=== PATIENT | female | born 1950 | race Caucasian/White ===

== ENCOUNTER 2017-12-18 15:50 | Emergency (ER) | payer MEDICARE, BC ==
[2017-12-18] MEDS ORDERED: ONDANSETRON 4 MG TAB.RAPDIS PO ONE (16:45)
[2017-12-18] MEDS ORDERED: RINGERS SOLUTION,LACTATED 1,000 ML IV ONE (16:45)
--- NOTE | 2017-12-18 16:50 | ER Document Report ---
ED Medical Screen (RME) - General Chief Complaint: Abdominal Pain Stated Complaint: ABDOMINAL PAIN Time Seen by Provider: 12/18/17 16:45 Mode of Arrival: Ambulatory Information source: Patient Notes: 67-year-old female with a history of diverticulitis presents to the emergency room with left lower quadrant tenderness since this morning consistent with previous episodes of diverticulitis. Patient does report nausea without vomiting. She denies fever. She has had some diarrhea but has not had any blood in her stool. TRAVEL OUTSIDE OF THE [place] IN LAST 30 DAYS: No - Related Data Allergies/Adverse Reactions: Sulfa (Sulfonamide Antibiotics) Allergy (Mild, Verified 12/18/17 15:54) Past Medical History - Social History Chew tobacco use (# tins/day): No Frequency of alcohol use: daily Drug Abuse: None - Past Medical History Cardiac Medical History: Reports: Hx Hypercholesterolemia, Hx Hypertension Renal/ Medical History: Denies: Hx Peritoneal Dialysis Past Surgical History: Reports: Hx Hysterectomy Physical Exam - Vital signs Vitals: Temp Pulse Resp BP Pulse Ox 98.8 F 93 20 130/91 H 97 12/18/17 16:21 12/18/17 16:21 12/18/17 16:21 12/18/17 16:21 12/18/17 16:21 Course - Vital Signs Vital signs: Temp Pulse Resp BP Pulse Ox 98.8 F 93 20 130/91 H 97 12/18/17 16:21 12/18/17 16:21 12/18/17 16:21 12/18/17 16:21 12/18/17 16:21
[2017-12-18 19:38] LABS: ABSOLUTE EOSINOPHILS # (AUTO) 0.1 10^3/uL (0.0-0.6); ABSOLUTE LYMPHOCYTES (AUTO) 1.3 10^3/uL (0.5-4.7); ABSOLUTE MONOCYTES (AUTO) 0.7 10^3/uL (0.1-1.4); ABSOLUTE NEUT (AUTO) 3.5 10^3/uL (1.7-8.2); BASOPHILS % (AUTO) 0.4 % (0-2); EOSINOPHILS % (AUTO) 2.2 % (0-6); HEMATOCRIT 42.6 % (36.0-47.0); HEMOGLOBIN 14.5 g/dL (12.0-15.5); LYMPHOCYTES % (AUTO) 22.3 % (13-45); MEAN CORPUSCULAR HEMOGLOBIN 33.5 pg (27.0-33.4); MEAN CORPUSCULAR VOLUME 98 fl (80-97); MONOCYTES % (AUTO) 13.2 % (3-13); PLATELET COUNT 236 10^3/uL (150-450); RED BLOOD COUNT 4.32 10^6/uL (3.72-5.28); SEGMENTED NEUTROPHILS % (AUTO) 61.9 % (42-78); TOTAL CELLS COUNTED % (AUTO) 100 %; WHITE BLOOD COUNT 5.6 10^3/uL (4.0-10.5)
[2017-12-18 19:46] LABS: PROTHROMBIN TIME 13.9 SEC (11.4-15.4)
[2017-12-18 19:55] LABS: ALANINE AMINOTRANSFERASE 56 U/L (9-52); ALBUMIN 5.1 g/dL (3.5-5.0); ALKALINE PHOSPHATASE 43 U/L (38-126); ANION GAP 17 (5-19); ASPARTATE AMINO TRANSFERASE 54 U/L (14-36); BILIRUBIN,DIRECT 0.2 mg/dL (0.0-0.4); BILIRUBIN,TOTAL 0.4 mg/dL (0.2-1.3); BLOOD UREA NITROGEN 17 mg/dL (7-20); CALCIUM 9.9 mg/dL (8.4-10.2); CARBON DIOXIDE 24 mmol/L (22-30); CHLORIDE 98 mmol/L (98-107); GLUCOSE 101 mg/dL (75-110); POTASSIUM 3.8 mmol/L (3.6-5.0); SODIUM 138.5 mmol/L (137-145); TOTAL PROTEIN 7.4 g/dL (6.3-8.2)
[2017-12-18] MEDS ORDERED: ONDANSETRON HCL INJ/PF 4 MG/2 ML SDV IV ONE (20:19)
[2017-12-18] MEDS ORDERED: KETOROLAC TROMETHAMINE INJ/PF 30 MG/1 ML SDV IV ONE (20:19)
--- NOTE | 2017-12-18 20:49 | ER Document Report ---
ED General - General Chief Complaint: Abdominal Pain Stated Complaint: ABDOMINAL PAIN Time Seen by Provider: 12/18/17 16:45 Mode of Arrival: Ambulatory TRAVEL OUTSIDE OF THE [place] IN LAST 30 DAYS: No - Related Data Allergies/Adverse Reactions: Sulfa (Sulfonamide Antibiotics) Allergy (Mild, Verified 12/18/17 15:54) Past Medical History - General Information source: Patient - Social History Smoking Status: Former Smoker Chew tobacco use (# tins/day): No Frequency of alcohol use: daily Drug Abuse: None Family History: Reviewed & Not Pertinent Patient has suicidal ideation: No Patient has homicidal ideation: No - Past Medical History Cardiac Medical History: Reports: Hx Hypercholesterolemia, Hx Hypertension Renal/ Medical History: Denies: Hx Peritoneal Dialysis Past Surgical History: Reports: Hx Hysterectomy Physical Exam - Vital signs Vitals: Temp Pulse Resp BP Pulse Ox 98.8 F 93 20 130/91 H 97 12/18/17 16:21 12/18/17 16:21 12/18/17 16:21 12/18/17 16:21 12/18/17 16:21 Course - Re-evaluation Re-evalutation: 12/18/17 20:47 Patient presents with focal tenderness to the left lower quadrant without any rebound or guarding. Labs are unremarkable, vitals within normal limits, patient does not meet sepsis criteria. She does have a history of diverticulitis in the past and states this feels exactly the same. Given her age, CT scan of the abdomen pelvis will be obtained to exclude perforation or localized abscess. Also obtain a urinalysis as an alternative diagnostic consideration would be pyelonephritis with associated cystitis given her location of pain. I do not clinically suspect an acute appendicitis, mesenteric ischemia, biliary colic, or acute pancreatitis based on exam and history. Will review CT scan and then plan for appropriate disposition 12/18/17 22:19 CT scan does show multiple areas of colonic inflammation, possible ileus although patient is not having any ongoing vomiting. Patient is on chronic opiate therapy which could be contributing to the possible ileus and she has been encouraged to discontinue these medications in conjunction with her physician. She has tolerated oral intake at this time without any difficulty. I do not see a current indication for hospitalization. Will treat empirically with antibiotics for possible infectious colitis given several areas of regional small and large bowel inflammation, recommend outpatient follow-up and consideration of a GI referral. At this time will discharge with return precautions and follow-up recommendations. Verbal discharge instructions given a the bedside and opportunity for questions given. Medication warnings reviewed. Patient is in agreement with this plan and has verbalized understanding of return precautions and the need for primary care follow-up in the next 24-72 hours. - Vital Signs Vital signs: Temp Pulse Resp BP Pulse Ox 98.8 F 86 18 134/84 H 99 12/18/17 16:21 12/18/17 23:18 12/18/17 23:18 12/18/17 23:18 12/18/17 23:18 - Laboratory Result Diagrams: 12/18/17 19:25 12/18/17 19:25 Laboratory results interpreted by me: 12/18/17 12/18/17 19:25 19:25 MCV 98 H MCH 33.5 H Monocytes % 13.2 H AST 54 H ALT 56 H Albumin 5.1 H - Diagnostic Test Radiology reviewed: Reports reviewed Discharge - Discharge Clinical Impression: Colitis Nausea and vomiting Qualifiers: Vomiting type: unspecified Vomiting Intractability: non-intractable Qualified Code(s): R11.2 - Nausea with vomiting, unspecified Diarrhea Qualifiers: Diarrhea type: unspecified type Qualified Code(s): R19.7 - Diarrhea, unspecified Condition: Good Disposition: HOME, SELF-CARE Additional Instructions: You were seen today for focal pain in your left lower quadrant. Your labs, exam , and imaging suggest a diagnosis of colonic inflammation in your CT scan does show several areas of your bowel that are inflamed. You are being started on antibiotics to treat this infection and inflammation. Please take all of them as directed and complete them even if your symptoms resolve. Please follow-up with your primary care physician within the next 48 hours. Return to the emergency department immediately if you develop worsening pain, persistent vomiting, began having bloody stools, develop a fever of greater than 101F, or have any other symptoms that are concerning to you. Please also discuss with your primary care doctor considering a GI referral if your symptoms are not improving within the next several days. Prescriptions: Cephalexin Monohydrate [Keflex 500 mg Capsule] 500 mg PO Q6H 10 Days #40 capsule Metronidazole [Flagyl 500 mg Tablet] 500 mg PO Q6H #40 tablet
--- NOTE | 2017-12-18 21:54 | RADIOLOGY REPORT (SQ) ---
EXAM DESCRIPTION: CT ABD/PELVIS WITH IV ONLY COMPLETED DATE/TIME: 12/18/2017 9:20 pm REASON FOR STUDY: eval left lower abdominal pain COMPARISON: None. TECHNIQUE: CT scan of the abdomen and pelvis performed using helical scanning technique with dynamic intravenous contrast injection. No oral contrast. Images reviewed with lung, soft tissue, and bone windows. Reconstructed coronal and sagittal MPR images reviewed. Delayed images for evaluation of the urinary system also acquired. All images stored on PACS. All CT scanners at this facility use dose modulation, iterative reconstruction, and/or weight based d osing when appropriate to reduce radiation dose to as low as reasonably achievable (ALARA). [facility]: Dose Right [facility]: CareDose [facility]: Dose Right [facility]: Teradose 4D [facility]: Topic CONTRAST TYPE AND DOSE: contrast/concentration: Isovue 370.00 mg/ml; Total Contrast Delivered: 88.0 ml; Total Saline Delivered: 69.0 ml RENAL FUNCTION: GFR > 60. RADIATION DOSE: CT Rad equipment meets quality standard of care and radiation dose reduction techniq ues were employed. CTDIvol: 13.2 - 17.5 mGy. DLP: 1593 mGy-cm.. LIMITATIONS: None. FINDINGS: LOWER CHEST: No significant findings. No nodules or infiltrates. LIVER: Normal size. No masses. No dilated ducts. SPLEEN: Normal size. No focal lesions. PANCREAS: No masses. No significant calcifications. No adjacent inflammation or peripancreatic fluid collections. Pancreatic duct not dilated. GALLBLADDER: No identified stones by CT criteria. No inflammatory changes to suggest cholecystitis. ADRENAL GLANDS: No significant masses or asymmetry. RIGHT KIDNEY AND URETER: No solid masses. No significant calcification. No hydronephrosis or hydroure ter. LEFT KIDNEY AND URETER: No solid masses. No significant calcification. No hydronephrosis or hydrouret er. AORTA AND VESSELS: No aneurysm. No dissection. Renal arteries, SMA, celiac without stenosis. RETROPERITONEUM: No retroperitoneal adenopathy, hemorrhage or masses. BOWEL AND PERITONEAL CAVITY: Mild fluid throughout distal small bowel loops. Fluid mildly distends t he colon, particularly proximally. No bowel wall thickening or fixed mechanical obstruction evident, however. No active inflammatory changes. No ascites or abnormal gas. APPENDIX: Normal. PELVIS: No mass. No free fluid. Normal bladder. ABDOMINAL WALL: No masses. No hernias. BONES: Degenerative mild listhesis at L4-5. Bones intact. OTHER: No other significant finding. IMPRESSION: 1. Mild fluid-filled loops of bowel suggesting ileus. 2. Otherwise, negative CT of the abdomen and pelvis. TECHNICAL DOCUMENTATION: JOB ID: [id number] Quality ID # [id number]: Final reports with documentation of one or more dose reduction techniques (e.g., Au tomated exposure control, adjustment of the mA and/or kV according to patient size, use of iterative reconstruction technique) 2010 [employer]- All Rights Reserved Reading location - IP/workstation name: [email or web address]
[2017-12-18] MEDS ORDERED: METRONIDAZOLE 500 MG TABLET PO ONE (22:22)
[2017-12-18] MEDS ORDERED: CEPHALEXIN 500 MG CAPSULE PO ONE (22:22)
[2017-12-18] MEDS ORDERED: ONDANSETRON ODT 4 MG TAB (6 TAB/ER DISP) PO PRN (22:23)
[2017-12-18 23:18] VITALS: BP 134/84
== END 2017-12-18 23:17 | disposition home or self-care (01) ==
LOC: ER 15:50
DX: K52.9 Noninfective gastroenteritis and colitis, unspecified (principal); R10.9 Unspecified abdominal pain; E78.00 Pure hypercholesterolemia, unspecified; I10 Essential (primary) hypertension; Z88.2 Allergy status to sulfonamides; Z87.891 Personal history of nicotine dependence
CPT/HCPCS: 99284; 96361; 96374; 96375; 36415; 85025; 85610; 80053; 74177; A9270 ×4; J1885; J2405; J7120; S0119

== ENCOUNTER → 2019-04-24 | Outpatient (CLI) | payer MEDICARE, BC ==
[~2019-04-24] MED LIST: FUROSEMIDE INJ/PF 40 MG/4 ML SDV ONE
--- NOTE | 2019-04-25 13:42 | RADIOLOGY REPORT (SQ) ---
EXAM DESCRIPTION: NM RENAL WITH LASIX COMPLETED DATE/TIME: 04/24/2019 4:19 pm REASON FOR STUDY: DYSURIA (R30.0), HYDRONEPHROSIS OF RIGHT KIDNEY (N13.30) R30.0 DYSURIA N13.30 UN SPECIFIED HYDRONEPHROSIS COMPARISON: None. RADIONUCLIDE AND DOSE: 5.41 millicuries Tc-99m MAG 3 The route of agent administration: Intravenous ADDITIONAL DRUGS AND DOSES: Lasix 20 mg. TECHNIQUE: Following administration of the radionuclide, flow images of the kidneys were acquired fo llowed by sequential imaging for 30 minutes. Intravenous Lasix was given at the midpoint of the study . Time activity curves were generated. LIMITATIONS: None. FINDINGS: ACTIVITY LEFT KIDNEY: 49 %. ACTIVITY RIGHT KIDNEY: 51 %. There is prompt uptake of activity in the kidneys bilaterally simultaneous with passage of the aortic bolus. There is normal excretion with progression of activity from the renal cortex into the collec ting system and subsequently into the ureters. Time activity curves demonstrate normal excretory pat tern with no abnormal retention. No obstructive changes. IMPRESSION: NORMAL LASIX RENOGRAM. TECHNICAL DOCUMENTATION: JOB ID: [id number] [employer]- All Rights Reserved Reading location - IP/workstation name: [email or web address]
== END ==
LOC: RAD 13:42
PROVIDERS: ATTEND Urology
DX: N13.30 Unspecified hydronephrosis (principal); R30.0 Dysuria
CPT/HCPCS: 78708; A9562; J1940